=== PATIENT | female | born 1945 | race Two or more races ===

== ENCOUNTER 2022-11-14 11:13 | Emergency (ER) | payer OTHER ==
[~2022-11-14] VITALS: Ht 149.9 cm; Wt 63.5 kg
--- NOTE | 2022-11-14 11:30 | NUR ---
Pt presented in the ED, accompanied by the daughter, w/ c/o chest pain, started yesterday (11-13-22), 7-05/18, characterized as aching, non-radiating, denies headache and upper extremity pain, manifesting nausea without vomiting. Seen by Dr. Webber for MSE.
[2022-11-14] MEDS ORDERED: ASPIRIN 81 MG TAB.CHEW ONE (11:41)
[2022-11-14] MEDS ORDERED: ONDANSETRON 4 MG/2 ML VIAL ONE (11:42)
[2022-11-14] MEDS ORDERED: NITROGLYCERIN 0.4 MG/TAB BOTTLE SL ONE ×2 (11:42→11:45)
[2022-11-14] MEDS ORDERED: ONDANSETRON 4 MG/2 ML VIAL IV ONE (11:45)
[2022-11-14] MEDS ORDERED: ASPIRIN 81 MG TAB.CHEW PO ONE (11:45)
[2022-11-14 11:55] LABS: HEMATOCRIT 29.5 % (31.2-41.9); MEAN CORPUSCULAR HEMOGLOBIN 21.3 uug (24.7-32.8); MEAN CORPUSCULAR VOLUME 68.8 fL (75.5-95.3); PLATELET COUNT (AUTO) 253 K/uL (179-408)
--- NOTE | 2022-11-14 12:00 | NUR ---
Gave 1st dose of Nitroglycerin, placed under the tongue per daughter's instruction (translated to angolan). Chest pain 05/18.
[2022-11-14 12:05] LABS: CARBON DIOXIDE 31 mmol/L (21-32); CHLORIDE 101 mmol/L (98-107); CREATININE 0.9 mg/dL (0.6-1.3); GLUCOSE 139 mg/dL (74-106); UREA NITROGEN, BLOOD 9 mg/dL (7-18)
--- NOTE | 2022-11-14 12:05 | NUR ---
Gave 2nd dose of Nitroglycerin, pain 6/10.
[2022-11-14 12:10] LABS: *BILIRUBIN,URIN NEGATIVE (NEGATIVE); *BLOOD, URINE NEGATIVE (NEGATIVE); *CLARITY,URINE CLEAR (CLEAR); *COLOR,URINE YELLOW (YELLOW); *KETONES,URINE NEGATIVE (NEGATIVE); *UROBILINOGEN,URINE 0.2 E.U./dl (NORMAL); LEUKOCYTE ESTERASE ,URINE 3+ (NEGATIVE); NITRITE, URINE NEGATIVE (NEGATIVE); PH,URINE 7.5 (5.0-8.0); UGLUCOSE NEGATIVE (NEGATIVE)
--- NOTE | 2022-11-14 12:10 | NUR ---
Pain 5/10. 3rd dose of Nitroglycerin given. Instruction given and translated by the pt's daughter.
--- NOTE | 2022-11-14 12:15 | NUR ---
Pt stated that the pain is the same 5/10, after the 3rd dose of Nitroglycerin.
[2022-11-14 12:18] LABS: ALANINE AMINOTRANSFERASE 16 U/L (14-59); ALKALINE PHOSPHATASE 66 U/L (50-136); ASPARTATE AMINOTRANSFERASE 15 U/L (15-37); BILIRUBIN,DIRECT 0.1 mg/dL (0.0-0.2); BILIRUBIN,TOTAL 0.6 mg/dL (0.2-1.0); TOTAL PROTEIN, SERUM 7.8 g/dL (6.4-8.2)
[2022-11-14] MEDS ORDERED: FERR325T24 PO (12:22)
[2022-11-14] MEDS ORDERED: LISI20TA30 PO (12:22)
[2022-11-14] MEDS ORDERED: MECL-159 PO (12:22)
[2022-11-14] MEDS ORDERED: PRAV20TA4 PO (12:22)
[2022-11-14] MEDS ORDERED: ROBAXIN (12:22)
[2022-11-14] MEDS ORDERED: HYDR25TA4 PO (12:22)
[2022-11-14] MEDS ORDERED: LORA-258 PO (12:22)
[2022-11-14] MEDS ORDERED: TRAM1TAB PO (12:22)
[2022-11-14] MEDS ORDERED: PROP20TA7 PO (12:22)
[2022-11-14] MEDS ORDERED: CALC-261 PO (12:22)
[2022-11-14] MEDS ORDERED: TIZA4CAP PO (12:22)
[2022-11-14] MEDS ORDERED: GABA-532 PO (12:22)
[2022-11-14] MEDS ORDERED: CIME300T PO (12:22)
[2022-11-14] MEDS ORDERED: SIME80TA16 PO (12:22)
[2022-11-14] MEDS ORDERED: METF-442 PO (12:22)
[2022-11-14 12:50] LABS: BACTERIA,URINE MANY /HPF (NONE SEEN); RBC,URINE 0-3 /HPF (0-3); SQUAMOUS EPITHELIAL CELL,UR FEW /HPF (NONE SEEN)
--- NOTE | 2022-11-14 13:19 | NUR ---
Patient does not wish to proceed with medical care recommended by Dr. Peter Webber. Patient given information related to possible complications, up to and including , which could occur as a result of leaving the hospital at this time. Patient verbalizes understanding of risks involved due to leaving against medical advice. Patient has signed AMA form.
[2022-11-14 13:21] VITALS: BP 129/76
== END 2022-11-14 12:45 | disposition left against medical advice (07) ==
LOC: ER 11:13
DX: R07.9 Chest pain, unspecified (principal); I10 Essential (primary) hypertension; Z53.29 Procedure and treatment not carried out because of patient's decision for other reasons; E78.5 Hyperlipidemia, unspecified; K21.9 Gastro-esophageal reflux disease without esophagitis; Z20.822 Contact with and (suspected) exposure to COVID-19; E11.9 Type 2 diabetes mellitus without complications; Z88.6 Allergy status to analgesic agent; Z88.0 Allergy status to penicillin; M81.0 Age-related osteoporosis without current pathological fracture; Z79.84 Long term (current) use of oral hypoglycemic drugs; Z79.899 Other long term (current) drug therapy; D64.9 Anemia, unspecified
CPT/HCPCS: 99285; 96374; 71045; 87426; 80076; 80048; 81001; 83880; 85025; 84484; 36415; 93005; J2405; A4663